=== PATIENT | female | born 1990 | race Caucasian/White ===

== ENCOUNTER 2017-05-07 19:19 | Emergency (ER) | payer MEDICAID, SELFPAY ==
[2017-05-07 19:20] VITALS: BP 122/67; PULSE 76; RESP 16; TEMP 37.2; O2SAT 100; BMI 19.8
[2017-05-07 19:42] LABS: Absolute Lymphocyte Count 2.83 X10^3/ul (0.83-4.51); Absolute Neutrophil Count 6.1 X10^3/uL (2.0-7.7); Basophil# 0.03 X10^3/uL; Basophil% 0.3 % (0-1); Eosinophil# 0.07 X10^3/uL; Eosinophils% 0.7 % (0-5); Hematocrit 37.7 % (37-47); Lymphocyte # 2.83 X10^3/ul (4.0); Lymphocyte % 29.5 % (19-41); Mean Corp Hgb Conc 34.5 g/gl (32-36); Mean Corpuscular Hgb 29.9 pg (27.0-32.0); Mean Corpuscular Volume 86.7 fL (81-99); Mean Platelet Vol. 10.2 fl (6.2-12.0); Monocyte# 0.58 X10^3/uL; Neutrophil # 6.07 X10^3/uL (2.7-7.7); Neutrophil % 63.4 % (47-70); Platelet Count 264 K/mm3 (150-450); RBC Distribution Width CV 12.7 % (11.6-14.6); RBC Distribution Width SD 40.7 fl (35.1-43.9); Red Blood Count 4.35 M/mm3 (4.2-5.4); White Blood Count 9.6 K/mm3 (4.4-11.0)
[2017-05-07 19:46] LABS: POSITIVE COUNT NO; POSITIVE DIFFERENTIAL NO; POSITIVE MORPHOLOGY NO
[2017-05-07 19:57] LABS: ALB/GLOB Ratio 1.1 RATIO (0.9-2.4); AST(SGOT) 17 U/L (15-37); Alanine Aminotransfer ALT/SGPT 19 U/L (13-56); Albumin, Serum 3.9 g/dL (3.2-5.0); Alkaline Phosphatase 56 U/L (45-117); Anion Gap 7 (5-15); BUN 9 mg/dL (7-18); BUN/Creat Ratio 13.2 RATIO (10-20); Calcium,Total 8.5 mg/dL (8.5-10.1); Chloride 105 mmol/L (98-107); Creatinine, Serum 0.68 mg/dL (0.55-1.02); EST Glomerular Filtration Rate 109 mL/min (>60); Est Glom Filt Rate - Afr Amer 132 mL/min (>60); Estimated Creatinine Clearance 118.61 ml/min; Globulin 3.6 g/dL (2.2-4.2); Glucose 86 mg/dL (74-106); Potassium 3.6 mmol/L (3.5-5.1); Protein, Total 7.5 g/dL (6.4-8.2); Sodium Level 137 mmol/L (136-145)
[2017-05-07 21:47] VITALS: RESP 18
--- NOTE | 2017-05-07 22:00 | US_ITS ---
STUDY: FIRST TRIMESTER OBSTETRICAL ULTRASOUND REASON FOR EXAM: Female, 26 years old. patient with left lower quadrant pain. LMP: 03/23/2017. TECHNIQUE: Transvaginal PRIOR ULTRASOUND: None. FINDINGS: There is visualization of a single gestational sac in a normal intrauterine position. The mean sac diameter (MSD) measures 27 mm, indicating an estimated gestational age (EGA) of 7 weeks, 6 days. The gestational sac shape is within normal limits. There is a visualized yolk sac. The yolk sac measures 4 mm. The placenta is non-visualized. There is visualization of a live embryo. The crown-rump length (CRL) measures 12 mm, indicating an estimated gestational age (EGA) of 7 weeks, 3 days. There is demonstrated cardiac activity with a heart rate of 157 bpm. The estimated gestation age (EGA) by LMP is 6 weeks, 3 days. The estimated date of delivery (LYNN) by LMP is 03/23/2017. The estimated gestation age (EGA) by US is 7 weeks, 5 days. The estimated date of delivery (LYNN) by US is 12/19/2017. The uterus measures 8.4 x 7.4 x 7.4 cm. There is no demonstrated uterine fibroid. The cervix is closed. The right ovary measures 2.7 x 1.8 x 1.7 cm. There is no right ovarian cyst. There is no visualized right adnexal mass or complex lesion. The left ovary measures 4.7 x 3.7 x 3.2 cm. There is a 3.9 cm cyst in the left kidney. There is no visualized left adnexal mass or complex lesion. There is no fluid in the cul de sac. US/Transvaginal w/Preg US IMPRESSION: Single live intrauterine fetus with an estimated gestational age of 7 weeks and 5 days. LYNN is 12/19/2017. Left ovarian cyst. Electronically Signed: Raghu Fermin MD at 23:50 EST Tel , Service support ,
--- NOTE | 2017-05-07 22:07 | ED.DCSUM_ITS ---
- ER Visit Summary Date of Service: 05/07/17 Chief Complaint: Left lower quadrant abdominal pain History of Present Illness: The patient is a 26 F presenting with left-sided abdominal pain. She states this has been ongoing for the past week. She went to urgent care. They did a test which was positive. She was sent to the ED to rule out ectopic . Denies vaginal bleeding. She has nausea with no vomiting. Complains of mild constipation. Denies urinary complaints. Last menstrual period was 03/23/2017. She is . Physical Examination: Vitals are stable. Patient is afebrile. Alert no acute distress. HEENT exam is unremarkable. Neck is supple. Lungs are clear and equal bilaterally. Heart is regular rate and rhythm. Abdomen is soft mild left lower quadrant tenderness, no rebound or guarding. Extremities are unremarkable. Skin is warm and dry. Remainder of exam is unremarkable. Emergency Department Course and Treatment: CBC, chemistries unremarkable[place]. [place] [id number]. Blood type is B+. Pelvic ultrasound was obtained and shows Single live intrauterine fetus with an estimated gestational age of 7 weeks and 5 days. LYNN is 12/19/2017. Left ovarian cyst. Patient is resting comfortably in the emergency department. She was given Tylenol. She is advised to follow-up with [facility]. Advised return to ED if worsening complaints. Disposition: Discharge home Impression: , left ovarian cyst This note was generated with [employer] dictation software. It may contain incorrect words, spelling, and punctuation that were not noted in review of the chart prior to signing ED Disposition - Plan for ED Patient: Chief Complaint: Abd Pain Referrals: NOT,DEFINED [Primary Care Provider] -
[2017-05-07 22:50] LABS: Bacteria 0 SEEN /hpf (None Seen); Mucous, Urine 0 SEEN /hpf (<or=2+); Red Blood Cells-Urine 0 SEEN /hpf (0-5); White Blood Cells 0 SEEN /hpf (0-5)
[2017-05-07 22:59] LABS: Color, Urine Yellow (Yellow); Glucose, Dipstick Normal (Normal); Ketone-Dipstick Negative (Negative); Leukocyte Esterase-Dipstick Negative /ul (Negative); Nitrite-Dipstick Negative (Negative); Occult Blood-Urine Negative /ul (Negative); Protein-Dipstick Negative (Negative); Specific Gravity, Urine 1.015 (1.002-1.030); Urine Bilirubin Dipstick Negative (Negative); Urine Clarity Clear (Clear); Urine Urobilinogen Normal (Normal)
[2017-05-07 23:10] VITALS: RESP 18; O2SAT 98
[2017-05-07 23:23] LABS: Squamous Epithelial Cells - UA 0-5 SEEN /hpf (5-10)
--- NOTE | 2017-05-08 00:07 | ED.DEP ---
ED Disposition - Plan for ED Patient: Chief Complaint: Abd Pain Instructions: Care for a Healthy Baby Referrals: NOT,DEFINED [Primary Care Provider] - Love Stein MD [STAFF PHYSICIAN] -
[2017-05-08 00:11] VITALS: RESP 18
[2017-05-08] MEDS: Acetaminophen 500 MG Tablet 1000 MG PO (00:11)
== END 2017-05-08 00:31 | disposition home or self-care (01) ==
LOC: ED 05-08 00:27
PROVIDERS: Emergency Provider Emergency Medicine
DX: O26.891 Other specified pregnancy related conditions, first trimester (principal); N83.202 Unspecified ovarian cyst, left side; Z3A.01 Less than 8 weeks gestation of pregnancy
CPT/HCPCS: 76817; 80053; 81001; 84702; 85025; 86900; 99284; A4216

== ENCOUNTER 2020-08-05 08:07 | Outpatient (RCR) | payer MEDICARE, SELFPAY | END 2020-09-09 23:59 | LOC: IMMUN 08:07 | PROVIDERS: Visit Provider Family Medicine | DX: Z23 Encounter for immunization (principal) | CPT/HCPCS: 0001A; 0002A; 91300 ==

== ENCOUNTER → 2020-12-17 | Outpatient (CLI) | payer MEDICARE, SELFPAY | END | disposition home or self-care (01) | LOC: LABSPEC 08:57 | PROVIDERS: Referring Provider Physician Assistant Surgical; Visit Provider Physician Assistant Surgical | DX: Z11.52 Encounter for screening for COVID-19 (principal) | CPT/HCPCS: 87635; U0005; U0003 ==